=== PATIENT | female | born 1995 | race Caucasian/White ===

== ENCOUNTER 2021-11-23 06:57 | Inpatient (IN) | payer BC ==
[2021-11-23] VITALS (16 sets, daily range): BP systolic 104–162; BP diastolic 56–77; PULSE 67–99; TEMP 97.6–98.3
[~2021-11-23] VITALS: Ht 172.7 cm; Wt 84.5 kg
--- NOTE | 2021-11-23 07:05 | NUR ---
Pt ambulatory onto unit with spouse. Escorted to LR4. Changed into clean gown. Complaining of contractions. Pt denies any vaginal bleeding, decreased movement, or leaking of fluid, FHR monitor/TOCO applied. Vital signs WNL. SVE by this RN /-1. 0733 Dr Madrigal called. Assessments completed and Consents signed. 0740 IV started by Day Uriarte RN. 0750 LR and Pen G running. Pt oriented to room. Plan of care discussed. Pt verbalizes understanding. Call light within reach.
[2021-11-23] MEDS ORDERED: PREDNISONE10 MG PO (07:32)
[2021-11-23 07:58] LABS: BASO % 0.1 % (0.0-2.0); EOS % 0.1 % (0.0-4.0); GRAN % 85.1 % (42.2-75.2); HEMOGLOBIN 12.5 g/dl (12.5-16.0); LYMPH # 1.3 K/mm3 (1.2-3.4); LYMPH % 9.1 % (20.0-51.0); MEAN CELL VOLUME 90 fl (80.0-100.0); MEAN CORPUSCULAR HEMOGLOBIN 32 pg (27-31); MEAN CORPUSCULAR HGB CONC 35 g/dl (33.0-37.0); MEAN PLATELET VOLUME 12.1 fl (7.4-10.4); MONO # 0.7 K/mm3 (0.1-0.6); PLATELET COUNT 118 K/mm3 (130-400); RED BLOOD COUNT 3.92 M/mm3 (4.10-5.30); REDCELL DISTRIBUTION WIDTH-CV 12.8 % (11.5-14.5)
[2021-11-23 08:03] LABS: HEMATOCRIT 35.4 % (37.0-47.0)
--- NOTE | 2021-11-23 13:00 | NUR ---
[id number] THIS RN AT BEDSIDE. FHR 120s-140s. Maternal heart rate tracing 80-100s. Audible when pushing on FHR monitor.
--- NOTE | 2021-11-23 14:20 | NUR ---
[id number] this rn at bedside. pt pushing with contractions. this rn monitoring FHR intermittently between contractions.
--- NOTE | 2021-11-23 14:30 | NUR ---
1250-to delivery Dr. Madrigal here reviewing FHR strip at labor desk. 1320 This rn at bedside pt begins pushing with contractions. 1424 Spontaneous vaginal delivery of viable male . Infant bulb suctioned and stimulated. Cord stops pulsating. Cord clamped by Dr Madrigal and cut by FOB. Infant to mother's chest. Vish Smith takes over care of . Cord blood collected and taken by Js Uriarte 1430 Spontaneous delivery of placenta. Pitocin bolus started per protocol. 2nd degree perineal laceration noted. Repaired by Dr. Madrigal. Pt repositioned. Clean pad placed. Plan of care discussed. pt verbalizes understanding. Call light within reach
--- NOTE | 2021-11-23 19:56 | NUR ---
REPORT FROM OFF GOING RN, CARE TAKEN OVER BY THIS RN.
[2021-11-24 00:03] VITALS: BP 115/75; PULSE 78; TEMP 98
[2021-11-24 03:45] VITALS: BP 104/62; PULSE 85; TEMP 97.5
[2021-11-24 07:45] VITALS: BP 106/62; PULSE 86; TEMP 97.7
[2021-11-24] MEDS ORDERED: IBU800 M1 PO (10:24)
[2021-11-24 20:05] VITALS: BP 122/71; PULSE 86; TEMP 97.4
[2021-11-25 08:45] VITALS: BP 122/69; PULSE 93; TEMP 97.8
--- NOTE | 2021-11-25 09:55 | NUR ---
Initial visit; Parents thanked Boat Person for offering congratulations and God's blessings for the of their son. Boat Person thanked family for choosing [place].
[2021-11-25 15:20] VITALS: BP 107/58; PULSE 80; TEMP 97.9
--- NOTE | 2021-11-25 15:40 | NUR ---
Discharge instructions reviewed with pt regarding pain control/medications, follow-up appointment, kaz care, and when to see physician. Also reviewed boarder status with pt and pt's spouse, both verbalize understanding, deny questions or concerns at this time. Pt discharged to boarder status.
== END 2021-11-25 15:42 | disposition home or self-care (01) | DRG 806 ==
LOC: LDRO 06:57 → LDR 07:37 → OB 07:37
PROVIDERS: ADMIT Obstetrics & Gynecology
PROC: 10E0XZZ Delivery of Products of Conception, External Approach (ICD-10-PCS; principal; 2021-11-23)
PROC: 0KQM0ZZ Repair Perineum Muscle, Open Approach (ICD-10-PCS; 2021-11-23)
PROC: 3E0334Z Introduction of Serum, Toxoid and Vaccine into Peripheral Vein, Percutaneous Approach (ICD-10-PCS; 2021-11-25)
DX: O48.0 Post-term pregnancy (principal); O99.12 Other diseases of the blood and blood-forming organs and certain disorders involving the immune mechanism complicating childbirth; Z37.0 Single live birth; D69.6 Thrombocytopenia, unspecified; O99.824 Streptococcus B carrier state complicating childbirth; O70.1 Second degree perineal laceration during delivery; O26.893 Other specified pregnancy related conditions, third trimester; O69.81X0 Labor and delivery complicated by cord around neck, without compression, not applicable or unspecified; Z3A.40 40 weeks gestation of pregnancy
CPT/HCPCS: J2540; J2590; J2791; J7120

== ENCOUNTER 2023-09-28 08:54 | Inpatient (IN) | payer BC ==
[~2023-09-28] VITALS: Ht 172.7 cm; Wt 84.1 kg
[2023-09-28] VITALS (13 sets, daily range): BP systolic 108–151; BP diastolic 62–87; PULSE 75–99; TEMP 97.8–98.4
[~2023-09-28 08:54] MED LIST: IBU800 M1 PO; PREDNISONE10 MG PO
[2023-09-28] MEDS ORDERED: LR 1,000 ML IV SCH (09:15)
[2023-09-28] MEDS ORDERED: Penicillin G Potassium 5,000,000 UNITS in NS 100 ML IV ONE (09:15)
[2023-09-28 09:33] LABS: BASO % 0.2 % (0.0-2.0); EOS % 0.2 % (0.0-4.0); GRAN # 6.4 K/mm3 (1.4-6.5); GRAN % 72.3 % (42.2-75.2); HEMATOCRIT 39.3 % (37.0-47.0); HEMOGLOBIN 13.2 g/dl (12.5-16.0); LYMPH # 1.8 K/mm3 (1.2-3.4); LYMPH % 20.8 % (20.0-51.0); MEAN CELL VOLUME 94 fl (80.0-100.0); MEAN CORPUSCULAR HEMOGLOBIN 31 pg (27-31); MEAN CORPUSCULAR HGB CONC 34 g/dl (33.0-37.0); MEAN PLATELET VOLUME 12.3 fl (7.4-10.4); MONO # 0.6 K/mm3 (0.1-0.6); MONO % 6.2 % (1.7-9.3); PLATELET COUNT 129 K/mm3 (130-400); REDCELL DISTRIBUTION WIDTH-CV 13.1 % (11.5-14.5)
--- NOTE | 2023-09-28 09:57 | NUR ---
0900 PATIENT HERE FROM HOME WITH COMPLAINTS OF CONTRACTIONS EVERY 3 MIN SINCE 0730 AND GETTING INTENSE. EFM ON FHT 120 BABY VERY ACTIVE. CONTRACTIONS EVERY 2-3 MIN AND PALPATE STRONG. SVE /-[address] RUBIO CALLED AT 09 AND UPDATED ON ALL ABOVE INFORMATION. ORDERS TO ADMIT PATIENT. 0920 IV STARTED IN LEFT WRIST AND LE 1000 STARTED WITH PEN G 5 MU PER PROTOCOL FOR GBS +.
[2023-09-28] MEDS ORDERED: Phenylephrine/Mineral Oil/Petrolatum 57 GM TUBE RC PRN (10:30)
[2023-09-28] MEDS ORDERED: Mag/Al Hydrox/Simeth Susp 30 ML CUP PO PRN (10:30)
[2023-09-28] MEDS ORDERED: oxyCODONE 5 MG TAB PO PRN (10:30)
[2023-09-28] MEDS ORDERED: Magnes Hydrox (MOM) 80 MG/ML 30 ML CUP PO PRN (10:30)
[2023-09-28] MEDS ORDERED: Naloxone 0.4 MG/ML VIAL IV PRN (10:30)
[2023-09-28] MEDS ORDERED: Witch Hazel 50% Pads Bulk TUB TP PRN (10:30)
[2023-09-28] MEDS ORDERED: Ibuprofen 800 MG TAB PO SCH (10:30)
[2023-09-28] MEDS ORDERED: Acetaminophen 500 MG TAB PO PRN (10:30)
[2023-09-28] MEDS ORDERED: Loratadine 10 MG TAB PO PRN (10:30)
[2023-09-28] MEDS ORDERED: Measles/Mumps/Rubella Virus Vaccine Live w Diluent 0.5 ML VIAL SQ SCH (10:30)
[2023-09-28] MEDS ORDERED: LR & Oxytocin 500 ML IV ONE (10:58)
--- NOTE | 2023-09-28 11:53 | NUR ---
1050 PATIENT IN SQUATTING POSITION. 1052 DR RUBIO CALLED AND UPDATED AND AT BEDSIDE. [address] RUBIO. BABY TO MOMS CHEST. STRONG CRY NOTED 1056 CORD CLAMPED AND CUT BY DR RUBIO. STRONG CRY NOTED. BABY SKIN TO SKIN. 1058 PLACENTA DELIVERED AT THIS TIME PER DR RUBIO . PITOCIN STARTED AT 333 PER PROTOCOL. FUNDUS FIRM. PERINIEM WASHED AND ICE PACK APPLIED.
--- NOTE | 2023-09-28 12:11 | NUR ---
1200 REPORT GIVEN TO Johnna JARRETT RN TO ASSUME CARE AT THIS TIME
[2023-09-28] MEDS ORDERED: Penicillin G Potassium 2,500,000 UNITS in NS 100 ML IV SCH (13:13)
[2023-09-28] MEDS ORDERED: Sennosides/Docusate 8.6-50 MG TAB PO SCH (17:00)
[2023-09-28] MEDS ORDERED: traZODone 50 MG TAB PO PRN (21:00)
[2023-09-29 00:10] VITALS: BP 102/63; PULSE 81; TEMP 98
[2023-09-29 04:20] VITALS: BP 108/69; PULSE 78; TEMP 98.2
[2023-09-29 07:00] VITALS: BP 105/67; PULSE 86; TEMP 98
[2023-09-29] MEDS ORDERED: Rho(D) Imm Globulin 1,500 UNITS (300 MCG)/2 ML SYRINGE IV\\IM SCH (08:35)
--- NOTE | 2023-09-29 09:39 | NUR ---
Initial visit; Parents thanked [employer]er for offering congratulations and God's Blessings for the of their son. Internal [employer]er thanked family for choosing [place] and wished their family well.
[2023-09-29] MEDS ORDERED: IBU800 M1 PO (12:11)
[2023-09-29 17:00] VITALS: BP 107/57; PULSE 90
[2023-09-29 20:08] VITALS: BP 106/83; PULSE 86; TEMP 97.7
== END 2023-09-30 12:10 | disposition home or self-care (01) | DRG 807 ==
LOC: LDRO 08:54 → LDR 09:10 → OB 09:10
PROVIDERS: ADMIT Student in an Organized Health Care Education/Training Program
PROC: 10E0XZZ Delivery of Products of Conception, External Approach (ICD-10-PCS; principal; 2023-09-28)
PROC: 0KQM0ZZ Repair Perineum Muscle, Open Approach (ICD-10-PCS; 2023-09-28)
DX: O48.0 Post-term pregnancy (principal); Z37.0 Single live birth; O26.893 Other specified pregnancy related conditions, third trimester; O70.1 Second degree perineal laceration during delivery; O99.824 Streptococcus B carrier state complicating childbirth; O76 Abnormality in fetal heart rate and rhythm complicating labor and delivery; O71.82 Other specified trauma to perineum and vulva; O36.63X0 Maternal care for excessive fetal growth, third trimester, not applicable or unspecified; Z3A.40 40 weeks gestation of pregnancy; Z23 Encounter for immunization; Z67.11 Type A blood, Rh negative
CPT/HCPCS: J2540; J2590; J2791; J7120